=== PATIENT | female | born 1995 | race African-American/Black ===

== ENCOUNTER 2018-10-27 19:26 | Emergency (ER) | payer OTHER ==
[~2018-10-27] VITALS: Ht 170.2 cm; Wt 81.0 kg
[2018-10-27] MEDS ORDERED: ONDANSETRON 4MG ODT PO ONE (20:15)
[2018-10-27 22:30] VITALS: BP 115/76
== END 2018-10-27 22:34 | disposition home or self-care (01) ==
LOC: ER 20:00
DX: F10.129 Alcohol abuse with intoxication, unspecified (principal); F41.9 Anxiety disorder, unspecified; F32.9 Major depressive disorder, single episode, unspecified; Y90.9 Presence of alcohol in blood, level not specified
CPT/HCPCS: 81025; 99283; Q0162; Z7610

== ENCOUNTER 2021-03-14 16:15 | Emergency (ER) | payer OTHER ==
[~2021-03-14] VITALS: Ht 165.1 cm; Wt 100.0 kg
[2021-03-14 16:17] VITALS: BP 107/70
== END 2021-03-14 18:24 | disposition left against medical advice (07) ==
LOC: ER 16:15
DX: R11.2 Nausea with vomiting, unspecified (principal); Z53.21 Procedure and treatment not carried out due to patient leaving prior to being seen by health care provider
CPT/HCPCS: 93005